=== PATIENT | female | born 1990 | race African-American/Black ===

== ENCOUNTER 2017-11-12 21:21 | Emergency (ER) | payer OTHER ==
[~2017-11-12] VITALS: Ht 167.6 cm; Wt 90.7 kg
[2017-11-12 22:04] LABS: HEMATOCRIT 35.6 % (36.0-46.0); HEMOGLOBIN 10.8 G/DL (11.9-15.5); MCH 22.4 PG (29.0-34.0); MCHC 30.3 G/DL (30.0-36.0); MCV 73.7 FL (83-99); PLATELET COUNT 322 K/uL (156-360); RBC DIS.WIDTH-SD 42.4 % (39-53); RED BLOOD COUNT 4.83 M/uL (3.80-5.20); WHITE BLOOD COUNT 7.5 K/uL (4.1-10.2)
[2017-11-12 22:05] LABS: ALBUMIN 3.9 g/dL (3.2-4.8); CHLORIDE 102 mEq/L (99-109); SODIUM 137 mEq/L (136-147)
[2017-11-12 22:08] LABS: GLUCOSE 375 mg/dL (70-99); TOTAL PROTEIN 7.4 g/dL (6.4-8.3)
[2017-11-12 22:10] LABS: TOTAL BILIRUBIN 0.2 mg/dL (0.0-1.0)
[2017-11-12 22:11] LABS: ALKALINE PHOSPHATASE 98 IU/L (3-129); CREATININE 0.9 mg/dL (0.6-1.3)
[2017-11-12 22:12] LABS: UREA NITROGEN (BUN) 12 mg/dL (9-23)
[2017-11-12 22:13] LABS: AST (GOT) 15 IU/L (2-34)
[2017-11-12 22:14] LABS: ALT (GPT) 11 IU/L (3-49)
[2017-11-12 22:16] LABS: GFR ESTIMATE (CALCULATED) > 59 mL/min/
[2017-11-13 00:43] VITALS: BP 122/86
== END 2017-11-13 00:45 | disposition home or self-care (01) ==
LOC: EME 21:21
PROVIDERS: Emergency Medicine
DX: E10.65 Type 1 diabetes mellitus with hyperglycemia (principal); Z79.4 Long term (current) use of insulin; F17.200 Nicotine dependence, unspecified, uncomplicated
CPT/HCPCS: 80053; 82948; 85027; 93005; 99281; 99285; J7030